=== PATIENT | female | born 1990 | race Caucasian/White ===

== ENCOUNTER 2019-08-25 17:13 | Emergency (ER) | payer BC, SELFPAY ==
[2019-08-25 17:15] VITALS: BP 119/74; PULSE 118; RESP 15; TEMP 37.2; O2SAT 98
--- NOTE | 2019-08-25 17:41 | ED.DCSUM_ITS ---
- ER Visit Summary Date of Service: 08/25/19 Chief Complaint: Sore throat and chills History of Present Illness: The patient is a 28 F no substantial past medical history. Patient states that she has had sore throat and chills since last evening. No fever. No nausea, vomiting or diarrhea. Mild nonproductive cough. Generalized weakness. No dysuria. Physical Examination: Young female no acute distress vital signs stable afebrile does not look septic or toxic. Pulse ox 90% on room air no signs hypoxia. HEENT exam TMs normal bilaterally. Posterior pharynx right tonsils mildly red with a pustule. No substantial enlargement. Left normal. No trouble swallowing or breathing. Neck 1 palpable anterior chain on the right side enlarged tender lymph node. Left side and posterior neck nontender. Lungs clear to auscultation bilaterally. Heart regular rhythm no murmur. Abdomen soft nontender. Patient moving all 4 extremities. No edema. Neurologically awake alert no focal motor deficits. Test Results: None Emergency Department Course and Treatment: History and exam are consistent with early strep throat. She has a right tonsil that is red as a pustule as a palpable lymph node. She was started on amoxicillin here and a prescription for 7 days. Treatment Plan: Amoxicillin 3 times daily. Tylenol Motrin for pain. Warm salt water gargling. Follow-up with her doctor to [facility] if not improving. Disposition: dc Impression: Acute strep throat This note was generated with [employer] dictation software. It may contain incorrect words, spelling, and punctuation that were not noted in review of the chart prior to signing ED Disposition - Plan for ED Patient: Referrals: [facility] ,Out of [Primary Care Provider] -
--- NOTE | 2019-08-25 17:43 | ED.DEP ---
ED Disposition - Plan for ED Patient: Disposition: Home or Assisted Living Instructions: Strep Throat Prescriptions: Amoxicillin 500 mg PO TID #30 tab Prescription Printed Referrals: [facility],Out of [Primary Care Provider] - 1 Week if not improving Additional Instructions: Fluids and rest. Alternate Tylenol and Motrin for pain, fever and body aches. Warm salt water gargling. Amoxicillin 3 times a day till gone. Follow-up with your doctor if not improving.
== END 2019-08-25 18:06 | disposition home or self-care (01) ==
LOC: ED 18:03
PROVIDERS: Emergency Provider Emergency Medicine
DX: J02.0 Streptococcal pharyngitis (principal)
CPT/HCPCS: 99282

== ENCOUNTER 2020-01-18 15:41 | Emergency (ER) | payer BC, SELFPAY ==
[2020-01-18 15:42] VITALS: BP 127/73; PULSE 80; RESP 16; TEMP 36.2; O2SAT 97; BMI 20.3
--- NOTE | 2020-01-18 16:20 | EKG12_ITS ---
Test Reason : DYSRHYTHMIA Blood Pressure : / mmHG Vent. Rate : 081 BPM Atrial Rate : 081 BPM P-R Int : 140 ms QRS Dur : 080 ms QT Int : 362 ms P-R-T Axes : 063 062 064 degrees QTc Int : 420 ms Normal sinus rhythm Normal ECG Confirmed by ALEJANDRO HAYNES, JANICE ([id number]), food editor JORDY ESCOBAR ([id number]) on 01/20/2020 9:44:44 AM Referred By: CHAD Confirmed By:JANICE ALLEN MD
[2020-01-18 16:40] LABS: Absolute Lymphocyte Count 1.79 X10^3/uL (0.83-4.51); Absolute Neutrophil Count 4.3 X10^3/uL (2.0-7.7); Basophil# 0.04 X10^3/uL; Basophil% 0.6 % (0-1); Eosinophil# 0.09 X10^3/uL; Eosinophils% 1.3 % (0-5); Hematocrit 42.7 % (37-47); Hemoglobin 13.7 g/dL (12.0-15.0); Lymphocyte # 1.79 X10^3/ul (4.0); Mean Corp Hgb Conc 32.1 g/dL (32-36); Mean Corpuscular Hgb 27.8 pg (27.0-32.0); Mean Corpuscular Volume 86.8 fL (81-99); Mean Platelet Vol. 9.9 fl (6.2-12.0); Monocyte# 0.62 X10^3/uL; NRBC Flagged by Analyzer 0 % (0-5); Neutrophil # 4.32 X10^3/uL (2.7-7.7); Neutrophil % 62.8 % (47-70); Platelet Count 241 K/mm3 (150-450); RBC Distribution Width CV 13.2 % (11.6-14.6); RBC Distribution Width SD 41.2 fl (35.1-43.9); Red Blood Count 4.92 M/mm3 (4.2-5.4); White Blood Count 6.9 K/mm3 (4.4-11.0)
[2020-01-18 16:53] LABS: Anion Gap 3 (5-15); BUN 10 mg/dL (7-18); BUN/Creat Ratio 13.6 RATIO (10-20); Calcium,Total 8.8 mg/dL (8.5-10.1); Chloride 108 mmol/L (98-107); Creatinine, Serum 0.74 mg/dL (0.55-1.02); EST Glomerular Filtration Rate 100 mL/min (>60); Est Glom Filt Rate - Afr Amer 121 mL/min (>60); Estimated Creatinine Clearance 105.36 ml/min; Glucose 66 mg/dL (74-106); Potassium 3.8 mmol/L (3.5-5.1); Prothrombin Time (Protime)PT. 12.8 SECONDS (11.7-14.9); Sodium Level 140 mmol/L (136-145)
[2020-01-18] MEDS: 0.9% Normal Saline 1,000 ML 1000 ML IV (16:53)
[2020-01-18 16:54] LABS: Partial Thromboplast Time 27.2 Seconds (24.1-36.2)
[2020-01-18 17:12] VITALS: BP 112/67; BP 116/72; BP 119/78; PULSE 68; PULSE 76
[2020-01-18] MEDS: Acetaminophen 500 MG Tablet 1000 MG PO (17:14)
[2020-01-18] MEDS: Ondansetron 4 MG/2 ML Vial IV (17:14)
[2020-01-18 17:43] LABS: Internal QC Validated? YES +Cl - CLEAR BKGD; Pregnancy, Serum, hCG Quali. NEGATIVE Negative
--- NOTE | 2020-01-18 17:48 | ED.VISSUMM ---
- ER Visit Summary Date of Service: 01/18/20 Chief Complaint: Lightheaded History of Present Illness: The patient is a 29 F with no primary care physician. She reports that a 31 this morning she been standing at work for approximate 20 minutes when she began to feel lightheaded. States that this was accompanied by nausea. She denies any chest pain, palpitations, vomiting, diaphoresis, or shortness of breath. She did not pass out. Physical Examination: Vitals: Stable. Afebrile. General: Well-nourished and well-developed. Head: Normocephalic atraumatic. Neck: Supple, no lymphadenopathy. No JVD. Nontender. Cardiovascular: Regular rate and rhythm. No murmurs. Respiratory: No respiratory distress. Clear to auscultation bilaterally. Abdominal: Soft, nontender, nondistended, normal bowel sounds. No guarding, rebound, or peritoneal signs. Back: Nontender. Extremities: Nontender, no edema. Skin: Normal color, no rash. Neurologic: Alert and oriented ?3. Cranial nerves II through XII are intact. Normal strength and sensation. Psych: Normal affect. Test Results: EKG is sinus at 81. Normal intervals. No evidence of hypertrophic obstructive cardiomyopathy or Brugada syndrome. CBC is normal. Chem-7 shows chloride 1 week glucose is 66. Coags are normal. test negative. Emergency Department Course and Treatment: Orthostatic vital signs were negative. Patient was able to drink while here. She was treated with Zofran IV and Tylenol p.o. Treatment Plan: Patient be discharged instructions to push fluids. Keep hard candy around in case she starts to feel this way again. Follow-up with the [facility] in 1 to 2 days if not improving. Return to the emergency department for any worsening symptoms. Disposition: To home in improved and stable condition. Impression: 1. Near syncope. 2. Hypoglycemia. This note was generated with [employer] dictation software. It may contain incorrect words, spelling, and punctuation that were not noted in review of the chart prior to signing ED Disposition - Plan for ED Patient: Disposition: Home or Assisted Living Instructions: ED Near-Fainting, Uncertain Cause Referrals: [facility] [NON-STAFF] - 1 Week
[2020-01-18 17:57] VITALS: BP 114/73; PULSE 77; RESP 14; O2SAT 100
== END 2020-01-18 18:01 | disposition home or self-care (01) ==
LOC: ED 17:57
PROVIDERS: Emergency Provider Emergency Medicine
DX: R55 Syncope and collapse (principal); E16.2 Hypoglycemia, unspecified
CPT/HCPCS: 80048; 84703; 85025; 85610; 85730; 93005; 96361; 96374; 99285; J7030; J2405

== ENCOUNTER 2020-05-04 16:09 | Emergency (ER) | payer OTHER, SELFPAY ==
[2020-05-04 16:11] VITALS: BP 121/78; PULSE 79; RESP 16; TEMP 36.2; O2SAT 99; BMI 21.2
--- NOTE | 2020-05-04 16:32 | ED.VISSUMM ---
- ER Visit Summary Date of Service: 05/04/20 Chief Complaint: [Headache, chest pain, nausea] History of Present Illness: The patient is a 29 F [presents to the emergency department with multiple complaints. Patient states that she woke up this morning and had a headache and some chest discomfort. Patient went back to bed and woke up and she still has a headache and had a stomachache and so she try to eat some pork chops with that and really seem to resolve things. She had a mild cough this morning but seems to be resolved now. She complains of body aches. She complains of feeling shaky. She denies any fever. She denies any Covid exposures. She states she is not really having pain so much in her abdomen is more nausea. She rates her headache as a 7 out of 10. She complains of some mild photophobia. She normally does not get headaches or migraines. Patient has no medical history. Patient's last menstrual period was less than a month ago and she has not missed a period. She denies any urinary symptoms.] Physical Examination: [HEENT-PERRLA, EOMI. Cranial nerves II through XII grossly intact. TMs clear. Mucous membranes moist. No adenopathy. Cardiovascular-regular rate and rhythm without murmur or ectopy Lungs-clear to auscultation, chest wall stable without crepitus or subcu emphysema Abdomen-normoactive bowel sounds, soft, nontender, no rebound or rigidity, no peritoneal signs. Neuro [id number] and heel lock testing within normal limits, negative Romberg, negative pronator drift, fundi benign Extremities-intact ?4, normal range of motion, normal pulses, atraumatic] Test Results: [CMP was unremarkable. hCG was negative. Urinalysis was negative. COVID-19 test was negative.] Emergency Department Course and Treatment: [IV line established. Patient was given a liter normal saline fluid bolus. Patient given Reglan, Benadryl, and Toradol and her headache resolved. She does not have abdominal pain. She is hungry and wants to eat.] Treatment Plan: [Patient advised to push fluids. Patient to follow-up with her primary care physician or physician regional sales executive for no doc within the next 3 to 5 days. Patient advised to return if condition should worsen anyway.] Disposition: [Discharged home in stable condition] Impression: [Migrainous cephalgia-resolved Viral syndrome] This note was generated with [employer] dictation software. It may contain incorrect words, spelling, and punctuation that were not noted in review of the chart prior to signing ED Disposition - Plan for ED Patient: Referrals: Care Physician,No Primary [Primary Care Provider] -
[2020-05-04 16:35] LABS: Bedside Glucose 89 mg/dL (70-110)
[2020-05-04] MEDS: 0.9% Normal Saline 1,000 ML 1000 ML IV (16:52)
[2020-05-04] MEDS: Metoclopramide 10 MG/2 ML Vial IV (16:53)
[2020-05-04] MEDS: Ketorolac 30 MG/ML Syringe IV (16:54)
[2020-05-04] MEDS: DiphenhydrAMINE 50 MG/ML Syringe 25 MG IV (16:55)
[2020-05-04 17:03] LABS: Bacteria 0 SEEN /hpf (None Seen)
[2020-05-04 17:04] LABS: Color, Urine Yellow (Yellow); Glucose, Dipstick Normal (Normal); Ketone-Dipstick 5 mg/dl (Negative); Leukocyte Esterase-Dipstick 25 /ul (Negative); Nitrite-Dipstick Negative (Negative); Occult Blood-Urine 25 /ul (Negative); Protein-Dipstick Negative (Negative); Urine Bilirubin Dipstick Negative (Negative); Urine Clarity Clear (Clear); Urine Urobilinogen Normal (Normal)
[2020-05-04 17:14] LABS: ALB/GLOB Ratio 0.9 RATIO (0.9-2.4); AST(SGOT) 10 U/L (15-37); Alanine Aminotransfer ALT/SGPT 18 U/L (13-56); Albumin, Serum 3.7 g/dL (3.2-5.0); Alkaline Phosphatase 68 U/L (45-117); Anion Gap 6 (5-15); BUN 9 mg/dL (7-18); BUN/Creat Ratio 12.4 RATIO (10-20); Calcium,Total 8.6 mg/dL (8.5-10.1); Chloride 108 mmol/L (98-107); Creatinine, Serum 0.72 mg/dL (0.55-1.02); EST Glomerular Filtration Rate 102 mL/min (>60); Est Glom Filt Rate - Afr Amer 123 mL/min (>60); Estimated Creatinine Clearance 112.94 ml/min; Globulin 4.1 g/dL (2.2-4.2); Glucose 85 mg/dL (74-106); Potassium 3.7 mmol/L (3.5-5.1); Protein, Total 7.8 g/dL (6.4-8.2); Sodium Level 139 mmol/L (136-145)
[2020-05-04 17:17] LABS: Internal QC Validated? YES +Cl - CLEAR BKGD; Pregnancy, Serum, hCG Quali. NEGATIVE Negative
[2020-05-04 17:30] LABS: Mucous, Urine 1+ /hpf (<or=2+); Red Blood Cells-Urine 0-5 SEEN /hpf (0-5); Squamous Epithelial Cells - UA 0-5 SEEN /hpf (5-10); White Blood Cells 0-5 SEEN /hpf (0-5)
--- NOTE | 2020-05-04 17:45 | ED.DEP ---
ED Disposition - Plan for ED Patient: Instructions: ED, Migraine (Classical), ED Viral Syndrome (Adult) Referrals: Care Physician,No Primary [Primary Care Provider] - Dania Hernandez MD [STAFF PHYSICIAN] - 3-5 Days
== END 2020-05-04 18:01 | disposition home or self-care (01) ==
PROVIDERS: Emergency Provider Emergency Medicine
DX: G43.909 Migraine, unspecified, not intractable, without status migrainosus (principal); B34.9 Viral infection, unspecified
CPT/HCPCS: 80048; 80053; 81001; 82962; 84703; 87426; 96361; 96374; 96375; 99283; J7030

== ENCOUNTER 2020-10-10 08:23 | Emergency (ER) | payer OTHER, SELFPAY ==
[2020-10-10 08:23] VITALS: BP 126/80; PULSE 73; RESP 16; TEMP 36.6; O2SAT 98; BMI 21.9
--- NOTE | 2020-10-10 09:00 | EX.ED.DYSGE1 ---
HPI History of Present Illness Chief Complaint: General Illness Informant: patient Onset/Context/Timing Onset: Yesterday Context: Gradual Onset Timing: Intermittent and Lasts (5 minutes) Quality: Lightheadedness Location: Generalized Worsened by: Nothing Relieved by: Nothing Narrative Narrative: Patient presents with dizziness that has been intermittent since yesterday. Patient states it comes on and lasts approximately 5 minutes. Patient states she feels lightheaded. Patient states she feels like she needs to sit down before she passes out. Patient denies any loss of consciousness. Patient states nothing makes it better and nothing makes it worse. Patient states it feels like a hangover but she has not had any alcohol to drink in the past couple days. PFSH PFS Home Medications levonorgestrel-ethinyl estrad 1 ea PO DAILY 08/25/19 [History Last Taken Unknown] acyclovir 400 mg PO BID 01/18/20 [History Last Taken Unknown] Allergy/AdvReac Type Severity Reaction Status Date / Time cat dander Allergy difficulty Verified 10/10/20 08:25 breathing, eyes swell hydromorphone [From Dilaudid] AdvReac Rash Verified 10/10/20 08:25 morphine AdvReac Rash Verified 10/10/20 08:25 Surgical History H/O LEEP left wrist Social History Smoking Status: Never smoker ROS ROS ED Constitutional Constitutional ED: Denies chills or fever(s) Eyes Eyes: Denies blurry vision or change in vision ENT ENT ED: Reports rhinorrhea; Denies sore throat Cardiovascular Cardiovascular: Denies chest pain or palpitations Respiratory/Chest Respiratory/Chest: Denies cough or dyspnea Gastrointestinal Gastrointestinal: Reports nausea; Denies vomiting Genitourinary Genitourinary ED: Denies dysuria or hematuria Musculoskeletal Musculoskeletal: Denies back pain or neck pain Integumentary Denies abscess or rash Neurologic Neurologic: Reports headache(s); Denies weakness Allergic/Immunologic Allergic/Immunologic ED: Denies mouth swelling or urticaria EXAM Physical Exam Const Vital Signs: 10/10/20 08:23 10/10/20 08:32 10/10/20 10:24 Temperature 97.9 F Temperature Source Temporal Pulse Rate 73 Pulse Rate [Lying] 79 Pulse Rate [Sitting] 71 Pulse Rate [Standing] 76 Respiratory Rate 16 Respiratory Effort Normal Non-Labored Respiratory Pattern Normal Blood Pressure 126/80 H Blood Pressure [Lying] 124/77 H Blood Pressure [Sitting] 120/83 H Blood Pressure [Standing] 136/85 H Blood Pressure Mean 95 Blood Pressure Mean [Lying] 92 Blood Pressure Mean [Sitting] 95 Blood Pressure Mean [Standing] 102 Pulse Ox 98 Oxygen Delivery Method Room Air 10/10/20 11:51 Temperature Temperature Source Pulse Rate 62 Pulse Rate [Lying] Pulse Rate [Sitting] Pulse Rate [Standing] Respiratory Rate 15 Respiratory Effort Respiratory Pattern Blood Pressure 113/74 Blood Pressure [Lying] Blood Pressure [Sitting] Blood Pressure [Standing] Blood Pressure Mean Blood Pressure Mean [Lying] Blood Pressure Mean [Sitting] Blood Pressure Mean [Standing] Pulse Ox 98 Oxygen Delivery Method Positive well nourished and well developed General Appearance ED: well developed HEENT Reports moist mucous membranes Eyes PERRL and EOMs intact bilaterally Eyes Narrative: There is no nystagmus noted Neck supple and no JVD Resp normal respiratory effort and clear to auscultation bilaterally Cardio regular rate and regular rhythm GI normal to inspection, nondistended, normoactive bowel sounds and non-tender Palpation: soft Extremity normal to inspection General Extremety ED: Negative for edema or tenderness General Extremity: Negative for edema Neuro oriented x3, CN's II-XII intact bilaterally and no sensory deficits noted Sensorium / Orientation: alert Motor Exam: strength 5/5 throughout Psych mental status grossly normal MDM MDM MDM Narrative Medical decision making narrative: Patient was given IV fluids and Zofran here. CBC and comprehensive metabolic profile were within normal limits. Urinalysis does not show any evidence of urinary tract infection. Serum hCG was negative. Patient was advised of her findings. Patient was instructed to drink plenty of fluids. Patient was instructed to follow-up with her primary care physician in 5 to 7 days. Patient understood and was agreeable with the plan. All questions were answered. Lab Data Attestation: I reviewed the patient's lab results. Labs: Laboratory Results - last 24 hr 10/10/20 10/10/20 10/10/20 09:29 09:35 09:35 WBC 8.6 RBC 5.06 Hgb 13.5 Hct 42.7 MCV 84.4 MCH 26.7 L MCHC 31.6 L RDW Std Deviation 41.1 RDW Coeff of Tamia 13.4 Plt Count 292 MPV 10.1 Immature Gran % (Auto) 0.200 Neut % (Auto) 73.6 H Lymph % (Auto) 19.3 [place] % (Auto) 5.8 Eos % (Auto) 0.8 Baso % (Auto) 0.3 Absolute Neuts (auto) 6.3 Absolute Lymphs (auto) 1.66 Nucleated RBC % 0 Sodium 137 Potassium 4.2 Chloride 107 Carbon Dioxide 27.0 Anion Gap 3 L BUN 12 Creatinine 0.63 Estim Creat Clear Calc 129.28 Est GFR (MDRD) Af Amer 143 Est GFR (MDRD) Non-Af 118 BUN/Creatinine Ratio 19.0 Glucose 86 Calcium 8.6 Total Bilirubin 0.30 AST 20 ALT 19 Alkaline Phosphatase 71 Total Protein 8.1 Albumin 3.8 Globulin 4.3 H Albumin/Globulin Ratio 0.9 Serum , Qual Urine Color Yellow Urine Clarity Sl. Cloudy Urine pH 6.0 Ur Specific [place] 1.025 Urine Protein 30 H Urine Glucose (UA) Normal Urine Ketones 5 H Urine Occult Blood 25 H Urine Nitrite Negative Urine Bilirubin Negative Urine Urobilinogen Normal Ur Leukocyte Esterase 25 H Urine RBC 0-5 SEEN Urine WBC 0-5 SEEN Ur Squamous Epith Cells 0-5 SEEN Urine Bacteria 1+ Urine Mucus 1+ 10/10/20 09:35 WBC RBC Hgb Hct MCV MCH MCHC RDW Std Deviation RDW Coeff of Tamia Plt Count MPV Immature Gran % (Auto) Neut % (Auto) Lymph % (Auto) [place] % (Auto) Eos % (Auto) Baso % (Auto) Absolute Neuts (auto) Absolute Lymphs (auto) Nucleated RBC % Sodium Potassium Chloride Carbon Dioxide Anion Gap BUN Creatinine Estim Creat Clear Calc Est GFR (MDRD) Af Amer Est GFR (MDRD) Non-Af BUN/Creatinine Ratio Glucose Calcium Total Bilirubin AST ALT Alkaline Phosphatase Total Protein Albumin Globulin Albumin/Globulin Ratio Serum , Qual NEGATIVE Urine Color Urine Clarity Urine pH Ur Specific [place] Urine Protein Urine Glucose (UA) Urine Ketones Urine Occult Blood Urine Nitrite Urine Bilirubin Urine Urobilinogen Ur Leukocyte Esterase Urine RBC Urine WBC Ur Squamous Epith Cells Urine Bacteria Urine Mucus Discharge Plan Triage Chief Complaint: General Illness ED Provider: Sathya Hendricks Dx/Rx/DC Orders Clinical Impression: Episodic lightheadedness Instructions: ED Dizziness, Uncertain Cause Prescriptions: No Action levonorgestrel-ethinyl estrad 1 EACH tablet 1 ea PO DAILY RF: 0 acyclovir 400 MG tablet 400 mg PO BID RF: 0 Primary Care Provider: Care Physician,No Primary Referrals: Jamil Ragsdale MD [STAFF PHYSICIAN] - 3-5 Days Care Physician,No Primary [Primary Care Provider] - Disposition Disposition: Home, Self Care Discharge Date/Time: 10/10/20 11:51
[2020-10-10 09:36] LABS: Color, Urine Yellow (Yellow); Glucose, Dipstick Normal (Normal); Ketone-Dipstick 5 mg/dl (Negative); Leukocyte Esterase-Dipstick 25 /ul (Negative); Nitrite-Dipstick Negative (Negative); Occult Blood-Urine 25 /ul (Negative); Protein-Dipstick 30 mg/dl (Negative); Specific Gravity, Urine 1.025 (1.002-1.030); Urine Bilirubin Dipstick Negative (Negative); Urine Clarity Sl. Cloudy (Clear); Urine Urobilinogen Normal (Normal)
[2020-10-10 09:42] LABS: Red Blood Cells-Urine 0-5 SEEN /hpf (0-5); Squamous Epithelial Cells - UA 0-5 SEEN /hpf (5-10); White Blood Cells 0-5 SEEN /hpf (0-5)
[2020-10-10 09:43] LABS: Bacteria 1+ /hpf (None Seen); Mucous, Urine 1+ /hpf (<or=2+)
[2020-10-10] MEDS: Ondansetron 8 MG Tablet 4 MG PO (09:51)
[2020-10-10 09:52] LABS: Absolute Lymphocyte Count 1.66 X10^3/uL (0.83-4.51); Absolute Neutrophil Count 6.3 X10^3/uL (2.0-7.7); Basophil# 0.03 X10^3/uL; Basophil% 0.3 % (0-1); Eosinophil# 0.07 X10^3/uL; Eosinophils% 0.8 % (0-5); Hematocrit 42.7 % (37-47); Hemoglobin 13.5 g/dL (12.0-15.0); Lymphocyte # 1.66 X10^3/ul (0.83-4.51); Lymphocyte % 19.3 % (19-41); Mean Corp Hgb Conc 31.6 g/dL (32-36); Mean Corpuscular Hgb 26.7 pg (27.0-32.0); Mean Corpuscular Volume 84.4 fL (81-99); Mean Platelet Vol. 10.1 fl (6.2-12.0); Monocyte% 5.8 % (0-10); NRBC Flagged by Analyzer 0 % (0-5); Neutrophil # 6.32 X10^3/uL (2.7-7.7); Neutrophil % 73.6 % (47-70); Platelet Count 292 K/mm3 (150-450); RBC Distribution Width CV 13.4 % (11.6-14.6); RBC Distribution Width SD 41.1 fl (35.1-43.9); Red Blood Count 5.06 M/mm3 (4.2-5.4); White Blood Count 8.6 K/mm3 (4.4-11.0)
[2020-10-10 10:03] LABS: ALB/GLOB Ratio 0.9 RATIO (0.9-2.4); AST(SGOT) 20 U/L (15-37); Alanine Aminotransfer ALT/SGPT 19 U/L (13-56); Albumin, Serum 3.8 g/dL (3.2-5.0); Alkaline Phosphatase 71 U/L (45-117); Anion Gap 3 (5-15); BUN 12 mg/dL (7-18); Calcium,Total 8.6 mg/dL (8.5-10.1); Chloride 107 mmol/L (98-107); Creatinine, Serum 0.63 mg/dL (0.55-1.02); EST Glomerular Filtration Rate 118 mL/min (>60); Est Glom Filt Rate - Afr Amer 143 mL/min (>60); Estimated Creatinine Clearance 129.28 ml/min; Globulin 4.3 g/dL (2.2-4.2); Glucose 86 mg/dL (74-106); Potassium 4.2 mmol/L (3.5-5.1); Protein, Total 8.1 g/dL (6.4-8.2); Sodium Level 137 mmol/L (136-145)
[2020-10-10 10:21] LABS: Internal QC Validated? YES +Cl - CLEAR BKGD; Pregnancy, Serum, hCG Quali. NEGATIVE Negative
[2020-10-10 10:24] VITALS: BP 120/83; BP 124/77; BP 136/85; PULSE 71; PULSE 76; PULSE 79
[2020-10-10 11:51] VITALS: BP 113/74; PULSE 62; RESP 15; O2SAT 98
== END 2020-10-10 11:51 | disposition home or self-care (01) ==
PROVIDERS: Emergency Provider Emergency Medicine
DX: R42 Dizziness and giddiness (principal); Z79.3 Long term (current) use of hormonal contraceptives
CPT/HCPCS: 80053; 81001; 84703; 85025; 99284; J7030; A4216; J2405

== ENCOUNTER 2021-03-01 16:00 | Outpatient (RCR) | payer OTHER, SELFPAY ==
--- NOTE | 2021-02-08 11:50 | HP.PTEVAL_ITS ---
Patient's Visit Information FRANCOISE RIVERS is a 30 year old F referred to Physical Therapy by AAMIR Bustamante with a diagnosis of low back muscle strain.. Date of Evaluation: 02/08/21 Physical Therapist: CLAIRE TomasT, OCS, CSCS - Visit Plan Frequency: 2x /Week Duration: 4-6 Weeks Plan: 2x/week for 4-6 weeks. 1. LB AROM and PROM, stretch of quads and HS with rollout. 2. core strength to HEP and functional progression with body mechanics instruct. 3. TENS and MH if needed for pain. 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 A couple hours later it started hurting, not right away. Canvas bad the next day and went to doctor. Diagnose with strain and given meds ibuprofen which helped a little bit. Also cyclobenzaprine which she stillt akes at night. Slightly improving over time but not great. Could not give dogs bath yesterday. pain is in the middle. never had this before. Pain has been to 7/10 moving and bending. Comfortable sitting less than an hour. Sleep is Ok with meds. 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 Basic ADLs are getting done but slow and painful with bending. Hobbies when healthy include shopping, crafting. Hang out with firends. has avoided these. No regular exercises. - Pain LBP Pain Intensity (Out of 10): 0 Pain Intensity Range: 0, 7 - Objective Walks normal adn I, trasnfers bed adn chair easily. reflexes 2/3 patella and achilles. strength LE 4 without myotomal problems. Sensation LE WNL LE. Tender to PA pressure lower lumbar spine. No soft tissue tenderness. supermans 3+ adn painful. hip ext painful in LB in prone. repeated ext adn flexion improved motion and pain as she did more of them. LB AROM ext painful and min limited. flexion painful and max limited at first. SB L>R pain. - Balance/Special Test Scores Oswestry Low Back Score: 20 - Goals Goal 1:: Full lumbar AROM without pain Goal Time Frame: 4-6 Weeks Goal 2:: pain 99% better adn 1/10 at worst Goal Time Frame: 4-6 Weeks Goal 3:: Return to work full duty and time Goal Time Frame: 4-6 Weeks Goal 4:: I approp body mechanics and HEP to minimze future problems. Goal Time Frame: 4-6 Weeks - Rehabilitation Potential Physical Therapy Diagnosis: low back muscle strain. Rehabilitation Potential: Good - Anticipated Interventions Patient/Client Instruction: Educate patient on: Condition, Plan of Care For the Purpose of:: To decrease pain, To increase ROM, To improve muscle performance and motor function, To improve ability of physical actions for home/community/work/leisure Therapeutic Exercise to Include: Strength training, Postural training, Flexibilty training, Gait and locomotor training, Passive ROM, Active ROM, Dynamic Lumbar Stabilization For the Purpose of:: To decrease pain, To improve muscle performance and motor function, To increase tolerance to activity/condition/position, To improve ability of physical actions for home/community/work/leisure Manual Therapy Techniques to Include: Passive ROM, Soft tissue mobilization For the Purpose of:: To decrease pain, To increase ROM, To increase tolerance to activity/condition/position TENS: Yes Thermo therapy (hot pack): Yes For the Purpose of:: To decrease pain, To increase ROM, To improve muscle performance and motor function Thank you for the opportunity to evaluate your patient. For Medicare and Medicare HMO plans, please review the plan of care and approve it. It will need to be FAXED BACK to us at [phone] for Medicare purposes. For Medicare only, by signing this I certify the plan of care. Please let me know if there are questions or concerns regarding this plan of care. Physician Signature:__ Date:
--- NOTE | 2021-03-07 09:24 | HP.PT.NRP ---
FRANCOISE RIVERS was seen in my office for initial evaluation on 02/08/21. The following Plan of Care was established for this patient: Initial Frequency: 2x /Week Initial Duration: 4-6 Weeks Patient/Client Instruction: Educate patient on: Condition, Plan of Care For the Purpose of:: To decrease pain, To increase ROM, To improve muscle performance and motor function, To improve ability of physical actions for home/community/work/leisure Therapeutic Exercise to Include: Strength training, Postural training, Flexibilty training, Gait and locomotor training, Passive ROM, Active ROM, Dynamic Lumbar Stabilization For the Purpose of:: To decrease pain, To improve muscle performance and motor function, To increase tolerance to activity/condition/position, To improve ability of physical actions for home/community/work/leisure Manual Therapy Techniques to Include: Passive ROM, Soft tissue mobilization For the Purpose of:: To decrease pain, To increase ROM, To increase tolerance to activity/condition/position TENS: Yes Thermo therapy (hot pack): Yes For the Purpose of:: To decrease pain, To increase ROM, To improve muscle performance and motor function This patient was last seen in our office 03/01/21. Pertinent comments regarding their Physical therapy will appear below: Pt seen 5 visits and reported to BRADLEY LINEBACKER CREWMEMBER at last session that she was 100% better and wished to be discharged. At this point I will be discontinuing this patient from physical therapy. I would be happy to see this patient again in the future if found appropriate by the physician. Thank you! Sathay Brito, DPT, OCS, CSCS Balance/Gait/Functional tests - Balance/Special Test Scores Oswestry Low Back Score: 0
== END 2021-03-01 19:00 | disposition home or self-care (01) ==
LOC: PT 16:00
PROVIDERS: Referring Provider Physician Assistant; Visit Provider Physician Assistant
DX: S39.012D Strain of muscle, fascia and tendon of lower back, subsequent encounter (principal); X58.XXXD Exposure to other specified factors, subsequent encounter
CPT/HCPCS: 97110; 97161

== ENCOUNTER 2021-04-24 07:51 | Emergency (ER) | payer OTHER, SELFPAY ==
[2021-04-24 07:52] VITALS: BP 128/79; PULSE 72; RESP 14; TEMP 35.7; O2SAT 98; BMI 22.9
--- NOTE | 2021-04-24 08:39 | EDS_ITS ---
HPI History of Present Illness Chief Complaint: General Illness Narrative Narrative: Patient had a Covid booster about 6 days ago, since then she has felt flushed and sometimes lightheaded. She was at work today and felt lightheaded again. No chest pain or shortness of breath no lower extremity edema or calf pain. No fevers or chills. No cough or congestion. She tells me she is eating and drinking well. [facility] Medical History Acute lumbar myofascial strain Home Medications levonorgestrel-ethinyl estrad 1 ea PO DAILY 08/25/19 [History Last Taken Unknown] ibuprofen 600 mg tablet 600 mg PO .QID #60 tab 02/01/21 [Rx Last Taken Unknown] Allergy/AdvReac Type Severity Reaction Status Date / Time cat dander Allergy difficulty Verified 04/24/21 07:55 breathing, eyes swell hydromorphone [From Dilaudid] AdvReac Rash Verified 04/24/21 07:55 morphine AdvReac Rash Verified 04/24/21 07:55 Surgical History H/O LEEP left wrist Social History Smoking Status: Never smoker ROS ROS ED ROS Narrative Past medical history: Reviewed Medications: Reviewed Social history: Noncontributory Review of systems: All systems negative except as indicated General: No fever. Lightheaded as in HPI Eyes: No visual changes ENT: No upper airway congestion, normal voice Neck: No neck pain Cardiovascular: No chest pain Respiratory: No shortness of breath or cough Gastrointestinal: No abdominal pain, nausea vomiting or diarrhea Genitourinary: No dysuria Musculoskeletal: Denies myalgias no difficulty with ambulation Skin: No rash Neurological: No memory loss, confusion or any focal weakness Psych: No recent behavioral changes Hematologic: No easy bleeding or easy bruising EXAM Physical Exam Narrative Exam Narrative: Physical exam General: Well nourished, Well developed, No Acute Distress Head: Normocephalic, Atraumatic Eyes: Conjunctiva not pale ENT: Moist mucous membranes Neck: Supple, Nontender, No lymphadenopathy Cardiovascular: Regular rate, Regular rhythm Respiratory: No distress, CTA bilaterally Abdomen: Soft, Nontender, Nondistended Back: Nontender, Normal Inspection. Negative for: CVA tenderness Extremities: Nontender, No edema Skin: Normal color, No rash Neurological: Alert, Normal Strength, Normal Sensation Psychological: Normal affect Const Vital Signs: 04/24/21 07:52 04/24/21 08:10 Temperature 96.3 F L Temperature Source Temporal Pulse Rate 72 Respiratory Rate 14 Respiratory Effort Normal Non-Labored Respiratory Pattern Normal Blood Pressure 128/79 H Blood Pressure Mean 95 Pulse Ox 98 Oxygen Delivery Method Room Air MDM MDM MDM Narrative Medical decision making narrative: Patient has a normal work-up. She appears well. She has normal vitals, this may be a side effect of the Covid vaccine or may be idiopathic. I do not believe I need to run any tests especially with normal vitals. EKG was unremarkable. I will discharge her with reassurance and she can follow-up with her PCP. EKG Initial EKG: Comments: Sinus rhythm with a rate of 75. Normal [place] and QTc intervals. No ischemic changes. Interpreted by emergency doctor. Discharge Plan Triage Chief Complaint: General Illness ED Provider: Israel Dos Santos Dx/Rx/DC Orders Clinical Impression: Light-headed Instructions: Dizziness Fainting Poss Causes Prescriptions: No Action ibuprofen 600 mg tablet 600 mg PO .QID Qty: 60 RF: 0 levonorgestrel-ethinyl estrad 1 EACH tablet 1 ea PO DAILY RF: 0 Primary Care Provider: Care Physician,No Primary Referrals: Care Physician,No Primary [Primary Care Provider] - Disposition Disposition: Home, Self Care
[2021-04-24 08:48] VITALS: BP 109/72; PULSE 71; RESP 16; O2SAT 98
== END 2021-04-24 08:48 | disposition home or self-care (01) ==
LOC: ED 08:43
PROVIDERS: Emergency Provider Emergency Medicine; Visit Provider Emergency Medicine
DX: R42 Dizziness and giddiness (principal)
CPT/HCPCS: 93005; 99282

== ENCOUNTER 2021-06-11 13:49 | Emergency (ER) | payer OTHER, SELFPAY ==
[2021-06-11 13:50] VITALS: BP 135/86; PULSE 80; RESP 18; TEMP 36.8; O2SAT 99; BMI 22.7
--- NOTE | 2021-06-11 14:14 | ED.VIS.FEGU ---
HPI HPI - Female History of Present Illness Chief Complaint: Complaint Informant: patient Pain Pain: Positive for - (Right side/flank) Onset: Yesterday Context: Gradual Onset Timing: Continuous Quality: Positive for Aching Location: - (Right flank) Current Severity: Moderate Maximum Severity: Moderate Worsened by: Movement Relieved by: Remaining Still Bleeding Issue: Negative for Vaginal bleeding Associated Symptoms Associated Symptoms: Positive for Dysuria, Frequency and Urgency; Negative for Hematuria Last known menstrual period: 05/18/21 Narrative Narrative: Patient with burning and urinary frequency over the last 2 or 3 days, then started developing pain in her right flank. Subjective fever once, some chills off and on. No nausea or vomiting. Not that she knows of. States she has had a UTI once that was diagnosed as pyelonephritis and bad enough that she needed to be admitted to the hospital but that was remotely. [facility] Medical History Acute lumbar myofascial strain Home Medications sulfamethoxazole-trimethoprim 1 tab PO BID #14 tablet 06/11/21 [Rx Last Taken Unknown] Allergy/AdvReac Type Severity Reaction Status Date / Time cat dander Allergy difficulty Verified 06/11/21 13:52 breathing, eyes swell hydromorphone [From Dilaudid] AdvReac Rash Verified 06/11/21 13:52 morphine AdvReac Rash Verified 06/11/21 13:52 Surgical History H/O LEEP left wrist Social History Smoking Status: Never smoker ROS ROS ED Constitutional Constitutional ED: Reports chills; Denies fever(s) Eyes Eyes: Denies change in vision or diplopia ENT ENT ED: Denies rhinorrhea or sore throat Cardiovascular Cardiovascular: Denies chest pain or palpitations Respiratory/Chest Respiratory/Chest: Denies cough or dyspnea Gastrointestinal Gastrointestinal: Denies diarrhea, nausea or vomiting Genitourinary Genitourinary ED: Reports dysuria, flank pain, urinary frequency and urinary urgency; Denies hematuria Musculoskeletal Musculoskeletal: Denies back pain or neck pain Integumentary Denies abscess or rash Neurologic Neurologic: Reports headache(s); Denies paresthesias or weakness Psychiatric Psychiatric: Denies anxiety or suicidal thoughts EXAM Physical Exam Const Vital Signs: 06/11/21 13:50 Temperature 98.3 F Temperature Source Temporal Pulse Rate 80 Respiratory Rate 18 Blood Pressure 135/86 H Blood Pressure Mean 102 Pulse Ox 99 Oxygen Delivery Method Room Air Positive well nourished and well developed Constitutional Narrative: Well-appearing in no distress General Appearance ED: well developed and NAD HEENT Reports moist mucous membranes normocephalic and atraumatic Eyes PERRL and EOMs intact bilaterally Neck full ROM and supple Resp normal respiratory effort and clear to auscultation bilaterally Cardio regular rate, regular rhythm and no murmurs Rate: Negative for tachycardic GI non-distended GI Narrative: Tender laterally in the right side without CVA tenderness. No guarding or rebound tenderness. No right upper quadrant tenderness subcostal. Auscultation: normoactive bowel sounds Palpation: soft Back/Spine no CVA tenderness General Back: other FROM Extremity normal to inspection General Extremety ED: Negative for edema, pulses abnormal or tenderness General Extremity: Negative for edema or pulses abnormal Neuro oriented x3, CN's II-XII intact bilaterally and no sensory deficits noted Sensorium / Orientation: awake and alert Motor Exam: strength 5/5 throughout Skin no rashes or lesions noted and no wounds MDM MDM MDM Narrative Medical decision making narrative: is negative, urinalysis consistent with infection this was sent for a culture, will start her on Bactrim. Instead of just 3 days, I will extend her out to 1 week given that she is having some symptoms of upper tract involvement but does not have the clinical appearance or exam of pablo pyelonephritis. Lab Data Attestation: I reviewed the patient's lab results. Labs: Laboratory Results - last 24 hr 06/11/21 14:15 Urine Color Yellow Urine Clarity Clear Urine pH 6.0 Ur Specific [place] 1.020 Urine Protein 30 H Urine Glucose (UA) Normal Urine Ketones 5 H Urine Occult Blood 150 H Urine Nitrite Negative Urine Bilirubin Negative Urine Urobilinogen Normal Ur Leukocyte Esterase 500 H Urine RBC 0-5 SEEN Urine WBC 50-100 SEEN Ur Squamous Epith Cells 0-5 SEEN Urine Bacteria 1+ Urine Mucus 1+ Urine Test Negative Discharge Plan Triage Chief Complaint: Complaint Other Complaint: Abd Pain ED Provider: Kevan Omer Dx/Rx/DC Orders Clinical Impression: Urinary tract infection Instructions: ED CYSTITIS Female Adult Prescriptions: New sulfamethoxazole-trimethoprim [sulfamethoxazole-trimethoprim] 1 TABLET tablet 1 tab PO BID Qty: 14 RF: 0 Primary Care Provider: Care Physician,No Primary Referrals: Doctor,Your [STAFF PHYSICIAN] - 3-5 Days if not improving (To review culture results; if worsening, return to ER) Disposition Disposition: Home, Self Care
[2021-06-11 14:29] LABS: Color, Urine Yellow (Yellow); Glucose, Dipstick Normal (Normal); Ketone-Dipstick 5 mg/dl (Negative); Leukocyte Esterase-Dipstick 500 /ul (Negative); Nitrite-Dipstick Negative (Negative); Occult Blood-Urine 150 /ul (Negative); Protein-Dipstick 30 mg/dl (Negative); Urine Bilirubin Dipstick Negative (Negative); Urine Clarity Clear (Clear); Urine Urobilinogen Normal (Normal)
[2021-06-11 14:39] LABS: White Blood Cells 50-100 SEEN /hpf (0-5)
[2021-06-11 14:40] LABS: Bacteria 1+ /hpf (None Seen); Red Blood Cells-Urine 0-5 SEEN /hpf (0-5); Squamous Epithelial Cells - UA 0-5 SEEN /hpf (5-10)
[2021-06-11 14:41] LABS: Mucous, Urine 1+ /hpf (<or=2+)
[2021-06-11 14:43] LABS: Internal QC Validated? YES +Cl - CLEAR BKGD; Pregnancy, Urine Negative Negative
[2021-06-11] MEDS: Smz/Tmp Ds Tablet 1 TABLET PO (15:14)
[2021-06-11] MEDS: Naproxen 250 MG Tablet 500 MG PO (15:14)
== END 2021-06-11 15:15 | disposition home or self-care (01) ==
PROVIDERS: Emergency Provider Emergency Medicine; Visit Provider Emergency Medicine
DX: N39.0 Urinary tract infection, site not specified (principal)
CPT/HCPCS: 81001; 81025; 87077; 87086; 87088; 87186; 99283; A4216

== ENCOUNTER 2021-09-07 06:22 | Emergency (ER) | payer OTHER, SELFPAY ==
[2021-09-07 06:25] VITALS: BP 125/76; PULSE 75; RESP 18; TEMP 36.1; O2SAT 99; BMI 21.8
--- NOTE | 2021-09-07 06:43 | EX.ED.DYSGE1 ---
HPI History of Present Illness Chief Complaint: Nausea/Vomiting/Diarrhea Informant: patient Narrative Narrative: Patient started with nausea vomiting and diarrhea on Saturday. She was seen in urgent care because her work wanted her to get checked for COVID. She was checked for COVID influenza a and B which were negative. She was told just drink liquids. No meds for nausea were given. She states the diarrhea has gotten a little bit more solid. She now has just loose stools. No blood. She was able to eat yesterday evening and thought she was better but then she vomited again this morning. She gets intermittent cramping in her abdomen but is not having pain. She has had no surgery in her abdomen other than a LEEP procedure years ago. She has no vaginal discharge or bleeding. She has no urinary symptoms at all. No fevers or chills. She does work at [employer] and is around a lot of other people but does not know of any specific illnesses that people have had. [facility] Medical History Acute lumbar myofascial strain Home Medications levonorgestrel 0.15 mg-ethinyl estradiol 0.03 mg tablet (Altavera (28)) 1 tab PO DAILY 09/07/21 [History Last Taken Unknown] ondansetron 4 mg disintegrating tablet 4 mg PO Q8H PRN nausea and vomiting #10 tabs 09/07/21 [Rx Last Taken Unknown] Allergy/AdvReac Type Severity Reaction Status Date / Time cat dander Allergy difficulty Verified 09/07/21 06:23 breathing, eyes swell hydromorphone [From Dilaudid] AdvReac Rash Verified 09/07/21 06:23 morphine AdvReac Rash Verified 09/07/21 06:23 Surgical History H/O LEEP left wrist Social History Smoking Status: Never smoker ROS ROS ED Constitutional Constitutional ED: Denies fever(s), subjective or sweats ENT ENT ED: Denies ear pain, rhinorrhea or sore throat Cardiovascular Cardiovascular: Denies chest pain or palpitations Respiratory/Chest Respiratory/Chest: Denies cough or dyspnea Gastrointestinal Gastrointestinal: Reports diarrhea, nausea, vomiting and other Details: See history of present illness. Genitourinary Genitourinary ED: Denies dysuria, hematuria or urinary frequency Musculoskeletal Musculoskeletal: Denies arthralgias, back pain or myalgias Integumentary Denies rash Neurologic Neurologic: Reports headache(s) and other Details: Patient does have a mild headache. ; Denies paresthesias or weakness Endocrine Endocrinology: Denies polydipsia or polyuria Allergic/Immunologic Allergic/Immunologic ED: Denies urticaria EXAM Physical Exam Const Vital Signs: 09/07/21 06:25 Temperature 97.0 F L Temperature Source Temporal Pulse Rate 75 Respiratory Rate 18 Blood Pressure 125/76 H Blood Pressure Mean 92 Pulse Ox 99 Oxygen Delivery Method Room Air Positive well nourished and well developed Constitutional Narrative: Patient awake alert appropriate. Appropriately dressed and groomed. Nontoxic. General Appearance ED: well developed and NAD; Negative for pallor HEENT Reports dry mucous membranes HEENT Narrative: Mildly dry mucous membranes. Mouth ED: Yes dry mucous membranes Mouth: dry mucous membranes Eyes General Eye ED: Negative for pale conjunctiva or scleral icterus Resp normal respiratory effort and clear to auscultation bilaterally Auscultation: Negative for rales, rhonchi, wheezes or diminished lung sounds Cardio regular rate, regular rhythm and no murmurs Rate: Negative for tachycardic GI normal to inspection, nondistended, normoactive bowel sounds, non-tender and non-distended GI Narrative: Abdomen is thin. Overall nontender. Bowel sounds are normal to slightly increased. No mass. No rebound or guarding. Narrative: No CVA tenderness. Back/Spine no CVA tenderness Neuro Sensorium / Orientation: alert Skin no rashes or lesions noted General Skin Exam: Negative for jaundice or pallor MDM MDM MDM Narrative Medical decision making narrative: Patient CBC is normal. This includes a white count hemoglobin and platelets. Electrolytes are normal. Liver function test is normal. Lipase is normal. is negative. Urine shows a small amount of ketones. No sign of infection. Patient's recheck. She is doing better. The nausea is gone. Her abdomen is soft. I do not think she needs imaging. With mild headache nausea vomiting and diarrhea I think this is likely a viral illness. We are pending her PCR COVID. We will get her home with [facility]. I will write her off work for a day. We discussed returning if she develops pain, blood in the stool or vomitus, fevers or other concerns. Lab Data Attestation: I reviewed the patient's lab results. Labs: Laboratory Results - last 24 hr 09/07/21 09/07/21 09/07/21 06:30 06:30 06:30 WBC 7.6 RBC 4.85 Hgb 13.6 Hct 41.7 MCV 86.0 MCH 28.0 MCHC 32.6 RDW Std Deviation 43.0 RDW Coeff of Tamia 13.7 Plt Count 307 MPV 10.2 Immature Gran % (Auto) 0.400 Neut % (Auto) 65.2 Lymph % (Auto) 24.1 Dukes % (Auto) 7.2 Eos % (Auto) 2.6 Baso % (Auto) 0.5 Absolute Neuts (auto) 4.9 Absolute Lymphs (auto) 1.83 Nucleated RBC % 0 Sodium 139 Potassium 3.7 Chloride 106 Carbon Dioxide 24.0 Anion Gap 9 BUN 7 Creatinine 0.69 Estim Creat Clear Calc 116.99 Est GFR (MDRD) Af Amer 128 Est GFR (MDRD) Non-Af 106 BUN/Creatinine Ratio 10.1 Glucose 104 Calcium 8.7 Total Bilirubin 0.20 AST 10 L ALT 18 Alkaline Phosphatase 63 Total Protein 7.5 Albumin 3.6 Globulin 3.9 Albumin/Globulin Ratio 0.9 Lipase 127 Serum , Qual NEGATIVE Urine Color Urine Clarity Urine pH Ur Specific [place] Urine Protein Urine Glucose (UA) Urine Ketones Urine Occult Blood Urine Nitrite Urine Bilirubin Urine Urobilinogen Ur Leukocyte Esterase Urine RBC Urine WBC Ur Squamous Epith Cells Urine Bacteria Urine Mucus 09/07/21 06:50 WBC RBC Hgb Hct MCV MCH MCHC RDW Std Deviation RDW Coeff of Tamia Plt Count MPV Immature Gran % (Auto) Neut % (Auto) Lymph % (Auto) Dukes % (Auto) Eos % (Auto) Baso % (Auto) Absolute Neuts (auto) Absolute Lymphs (auto) Nucleated RBC % Sodium Potassium Chloride Carbon Dioxide Anion Gap BUN Creatinine Estim Creat Clear Calc Est GFR (MDRD) Af Amer Est GFR (MDRD) Non-Af BUN/Creatinine Ratio Glucose Calcium Total Bilirubin AST ALT Alkaline Phosphatase Total Protein Albumin Globulin Albumin/Globulin Ratio Lipase Serum , Qual Urine Color Yellow Urine Clarity Clear Urine pH 5.0 Ur Specific [place] 1.020 Urine Protein 15 H Urine Glucose (UA) Normal Urine Ketones 5 H Urine Occult Blood 25 H Urine Nitrite Negative Urine Bilirubin Negative Urine Urobilinogen Normal Ur Leukocyte Esterase 100 H Urine RBC 0-5 SEEN Urine WBC 0-5 SEEN Ur Squamous Epith Cells 0-5 SEEN Urine Bacteria 1+ Urine Mucus 1+ Discharge Plan Triage Chief Complaint: Nausea/Vomiting/Diarrhea ED Provider: Chaparro Cornejo Dx/Rx/DC Orders Clinical Impression: Nausea vomiting and diarrhea, Mild dehydration Instructions: ED Vomiting and Diarrhea ... Prescriptions: New ondansetron 4 mg tablet,disintegrating 4 mg PO Q8H PRN (Reason: nausea and vomiting) Qty: 10 0RF No Action levonorgestrel-ethinyl estrad [Altavera (28)] 0.15-0.03 mg tablet 1 tab PO DAILY Primary Care Provider: Care Physician,No Primary Referrals: Sathya Kc MD [STAFF PHYSICIAN] - 1-2 Days if not improving Care Physician,No Primary [Primary Care Provider] - Disposition Disposition: Home, Self Care
[2021-09-07] MEDS: Ondansetron 4 MG/2 ML Vial IV (06:48)
[2021-09-07] MEDS: 0.9% Normal Saline 1,000 ML 1000 ML IV (06:49)
[2021-09-07 06:50] LABS: Absolute Lymphocyte Count 1.83 X10^3/uL (0.83-4.51); Absolute Neutrophil Count 4.9 X10^3/uL (2.0-7.7); Basophil# 0.04 X10^3/uL; Basophil% 0.5 % (0-1); Eosinophils% 2.6 % (0-5); Hematocrit 41.7 % (37-47); Hemoglobin 13.6 g/dL (12.0-15.0); Lymphocyte # 1.83 X10^3/ul (0.83-4.51); Lymphocyte % 24.1 % (19-41); Mean Corp Hgb Conc 32.6 g/dL (32-36); Mean Platelet Vol. 10.2 fl (6.2-12.0); Monocyte# 0.55 X10^3/uL; Monocyte% 7.2 % (0-10); NRBC Flagged by Analyzer 0 % (0-5); Neutrophil # 4.94 X10^3/uL (2.7-7.7); Neutrophil % 65.2 % (47-70); Platelet Count 307 K/mm3 (150-450); RBC Distribution Width CV 13.7 % (11.6-14.6); Red Blood Count 4.85 M/mm3 (4.2-5.4); White Blood Count 7.6 K/mm3 (4.4-11.0)
[2021-09-07 07:04] LABS: Color, Urine Yellow (Yellow); Glucose, Dipstick Normal (Normal); Ketone-Dipstick 5 mg/dl (Negative); Leukocyte Esterase-Dipstick 100 /ul (Negative); Nitrite-Dipstick Negative (Negative); Occult Blood-Urine 25 /ul (Negative); Protein-Dipstick 15 mg/dl (Negative); Urine Bilirubin Dipstick Negative (Negative); Urine Clarity Clear (Clear); Urine Urobilinogen Normal (Normal)
[2021-09-07 07:07] LABS: ALB/GLOB Ratio 0.9 RATIO (0.9-2.4); AST(SGOT) 10 U/L (15-37); Alanine Aminotransfer ALT/SGPT 18 U/L (13-56); Albumin, Serum 3.6 g/dL (3.2-5.0); Alkaline Phosphatase 63 U/L (45-117); Anion Gap 9 (5-15); BUN 7 mg/dL (7-18); BUN/Creat Ratio 10.1 RATIO (10-20); Calcium,Total 8.7 mg/dL (8.5-10.1); Chloride 106 mmol/L (98-107); Creatinine, Serum 0.69 mg/dL (0.55-1.02); EST Glomerular Filtration Rate 106 mL/min (>60); Est Glom Filt Rate - Afr Amer 128 mL/min (>60); Estimated Creatinine Clearance 116.99 ml/min; Globulin 3.9 g/dL (2.2-4.2); Glucose 104 mg/dL (74-106); Lipase 127 U/L (73-393); Potassium 3.7 mmol/L (3.5-5.1); Protein, Total 7.5 g/dL (6.4-8.2); Sodium Level 139 mmol/L (136-145)
[2021-09-07 07:13] LABS: Bacteria 1+ /hpf (None Seen); Mucous, Urine 1+ /hpf (<or=2+); Red Blood Cells-Urine 0-5 SEEN /hpf (0-5); Squamous Epithelial Cells - UA 0-5 SEEN /hpf (5-10); White Blood Cells 0-5 SEEN /hpf (0-5)
[2021-09-07 07:19] LABS: Internal QC Validated? YES +Cl - CLEAR BKGD; Pregnancy, Serum, hCG Quali. NEGATIVE Negative
[2021-09-07 07:44] VITALS: BP 114/67; PULSE 71; RESP 16; O2SAT 98
== END 2021-09-07 07:45 | disposition home or self-care (01) ==
PROVIDERS: Emergency Provider Emergency Medicine; Visit Provider Emergency Medicine
DX: R11.2 Nausea with vomiting, unspecified (principal); R19.7 Diarrhea, unspecified; R51.9 Headache, unspecified; R10.9 Unspecified abdominal pain; Z20.822 Contact with and (suspected) exposure to COVID-19
CPT/HCPCS: 80053; 81001; 83690; 84703; 85025; 87635; 96361; 96374; 99283; J7030; J2405; U0003; U0005

== ENCOUNTER 2023-05-22 13:15 | Outpatient (CLI) | payer OTHER, SELFPAY ==
[2023-05-22 13:43] VITALS: BMI 23.3
[2023-05-22 13:54] LABS: Color, Urine Yellow (Yellow); Glucose, Dipstick Normal (Normal); Ketone-Dipstick 5 mg/dl (Negative); Leukocyte Esterase-Dipstick 25 /ul (Negative); Nitrite-Dipstick Negative (Negative); Occult Blood-Urine Negative /ul (Negative); Protein-Dipstick Negative (Negative); Urine Bilirubin Dipstick Negative (Negative); Urine Clarity Clear (Clear); Urine Urobilinogen Normal (Normal)
[2023-05-22 14:15] LABS: ROM Internal Control Test YES-OK TO RESULT pt. (Internal QC); ROM Patient Test Negative (Negative); Record Kit Lot#, ROM+ K1409
--- NOTE | 2023-05-22 20:23 | OB.TRI.NOTE ---
HPI - General HPI Narrative FRANCOISE RIVERS, is a 32 F who presents with feeling a gush of fluid. Stated put on a pad and pad currently wet as well. Positive movement. Maternal Data Information SEAN Calculator Estimated Delivery Date Method Current WG Current Estimate 08/26/23 Manual 26w 2d PFSH PFSH Medical History Acute lumbar myofascial strain Home Medications levonorgestrel 0.15 mg-ethinyl estradiol 0.03 mg tablet (Altavera (28)) 1 tab PO DAILY 09/07/21 [History Last Taken Unknown] ondansetron 4 mg disintegrating tablet 4 mg PO Q8H PRN nausea and vomiting #10 tabs 09/07/21 [Rx Last Taken Unknown] Allergy/AdvReac Type Severity Reaction Status Date / Time cat dander Allergy difficulty Verified 05/22/23 14:16 breathing, eyes swell hydromorphone [From Dilaudid] AdvReac Rash Verified 05/22/23 14:16 morphine AdvReac Rash Verified 05/22/23 14:16 Surgical History H/O LEEP left wrist Social History Smoking Status: Never smoker ROS Eyes Eyes: Denies blurry vision Cardiovascular Cardiovascular: Reports none; Denies chest pain at rest, chest pain with activity or dizziness Respiratory/Chest Respiratory/Chest: Denies cough or dyspnea Gastrointestinal Gastrointestinal: Reports none and other; Denies diarrhea or vomiting Genitourinary Genitourinary: Denies dysuria Musculoskeletal Musculoskeletal: Reports none Integumentary Integumentary: Reports none; Denies rash Neurologic Neurologic: Denies dizziness, headache(s) or other visual disturbances Psychiatric Psychiatric: Reports none Physical Exam Const alert and no apparent distress General Appearance: cooperative Orientation / Consciousness: awake Exam Limitations: no limitations HEENT normocephalic Eyes General Eye: normal appearance of both eyes Neck full ROM Chest inspection of chest normal Resp normal respiratory effort and normal air movement Effort and Inspection: symmetric chest movement Auscultation: clear to auscultation bilaterally Cardio regular rate GI soft to palpation, non-tender and non-distended Inspection: and other Back/Spine normal ROM Extremity full ROM, normal capillary refill and no calf tenderness Skin no rashes or lesions noted Neuro oriented x3 and CN's II-XII intact bilaterally Psych mental status grossly normal NST FHR Rate Baby A Baseline: 125 NST Reactive:: Appropriate for gestational age Uterine Activity:: None Assessment & Plan (1) 26 weeks gestation of : (2) Threatened labor: PLAN: Plan Rom Plus- NEGATIVE UA- negative other than ketones and leukocytes (possible contamination) FHT 120-130 bpm D/C home with follow up in office Dr. Villarreal notified
== END 2023-05-22 14:45 | disposition home or self-care (01) ==
LOC: WPOUT 13:26 → WP 13:27
PROVIDERS: Referring Provider Advanced Practice Midwife; Visit Provider Advanced Practice Midwife
DX: O47.02 False labor before 37 completed weeks of gestation, second trimester (principal); Z3A.26 26 weeks gestation of pregnancy
CPT/HCPCS: 59025; 59050; 81002; 84112; 99221; G0378

== ENCOUNTER 2023-08-12 19:11 | Inpatient (IN) | payer MEDICAID, SELFPAY ==
[2023-08-12] VITALS (7 sets, daily range): BP systolic 138–156; BP diastolic 81–89; PULSE 60–68; RESP 16; TEMP 36.4–36.8; O2SAT 98–100; BMI 26.5
[2023-08-12] MEDS: Lactated Ringers 1,000 ML 50 ML IV (20:15)
[2023-08-12 20:30] LABS: Absolute Lymphocyte Count 2.55 X10^3/uL (0.83-4.51); Absolute Neutrophil Count 8.7 X10^3/uL (2.0-7.7); Basophil# 0.05 X10^3/uL; Basophil% 0.4 % (0-1); Eosinophil# 0.05 X10^3/uL; Eosinophils% 0.4 % (0-5); Hematocrit 33.5 % (37-47); Hemoglobin 10.6 g/dL (12.0-15.0); Lymphocyte # 2.55 X10^3/ul (0.83-4.51); Lymphocyte % 20.8 % (19-41); Mean Corp Hgb Conc 31.6 g/dL (32-36); Mean Corpuscular Hgb 25.5 pg (27.0-32.0); Mean Corpuscular Volume 80.7 fL (81-99); Mean Platelet Vol. 11.4 fl (6.2-12.0); Monocyte# 0.83 X10^3/uL; Monocyte% 6.8 % (0-10); NRBC Flagged by Analyzer 0 % (0-5); Neutrophil # 8.65 X10^3/uL (2.7-7.7); Neutrophil % 70.4 % (47-70); Platelet Count 236 K/mm3 (150-450); RBC Distribution Width CV 14.6 % (11.6-14.6); RBC Distribution Width SD 41.6 fl (35.1-43.9); Red Blood Count 4.15 M/mm3 (4.2-5.4); White Blood Count 12.3 K/mm3 (4.4-11.0)
--- NOTE | 2023-08-12 21:01 | PCM.HP.OB ---
HPI - General General Date of Admission: 08/12/23 Date of Service: 08/12/23 Chief Complaint: IOL for IUGR HPI Narrative FRANCOISE RIVERS, is a 32 F who presents for scheduled IOL for IUGR. She offers no complaints. Maternal Data Information SEAN Calculator Estimated Delivery Date Method Current WG Current Estimate 08/26/23 Manual 38w 0d PFSH PFSH Medical History (Updated 08/12/23 @ 21:[address] Izzy Reese, DO) Genital herpes affecting Acute lumbar myofascial strain Home Medications ?Medication ?Instructions ?Recorded ?Last Taken ?Type pantoprazole 20 mg tablet,delayed 20 mg PO DAILY gerd 08/12/23 08/12/23 09:00 History release no.118-ferrous fumarate 1 tab PO DAILY 08/12/23 08/12/23 09:00 History 29 mg-folic acid 1 mg chewable tablet (Se- 19 Chewable) valacyclovir 500 mg tablet 1,000 mg PO DAILY HSV 08/12/23 08/12/23 09:00 History Allergy/AdvReac Type Severity Reaction Status Date / Time hydromorphone (From Dilaudid) AdvReac Rash Verified 08/12/23 20:22 morphine AdvReac Rash Verified 08/12/23 20:22 Surgical History (Updated 08/12/23 @ 20:40 by Keli Albarran) left wrist H/O LEEP Social History Smoking Status: Never smoker History Elective abortions Hx Para 0 Spontaneous abortions Hx # Term Pregnancies Ectopic pregnancies Hx # Pregnancies Multiple births # of living children Addt'l History: 07/22/23 growth US with EFW 5% 2021 grams Normal umbilical artery dopplers NST FHR Rate Baby A Baseline: 120 Variability:: Moderate Accelerations:: 15 x 15 Decelerations:: None NST Reactive:: Yes FHR Category:: Category I Uterine Activity:: irregular ctx's Vital Signs Vital Signs Vital Signs: 08/12/23 20:11 08/12/23 20:11 Pulse Rate 68 Blood Pressure 138/89 H BP Systolic 138 BP Diastolic 89 Weight Weight: 169 lb 5.04 oz Body Mass Index (BMI) 26.5 Physical Exam Const alert and no apparent distress General Appearance: comfortable HEENT normocephalic Resp normal respiratory effort GI soft to palpation, non-tender and non-distended Labs Labs Labs: Blood Type O POSITIVE Antibody Screen NEGATIVE Hct 33.5 % (37-47) L Hgb 10.6 g/dL (12.0-15.0) L Syphilis Total Ab Non-reactive GBS negative Assessment & Plan (1) 38 weeks gestation of : PLAN: Admit for routine intrapartum care for schedule IOL for IUGR. GBS negative. Epidural PRN. Cytotec ordered and intracervical rodriguez placed in usual fashion filled with 30 cc. Discussed possible need for section given IUGR if baby does not tolerate labor. (2) IUGR (intrauterine growth restriction): PLAN: EFW 5% on growth ultrasound. (3) Elevated glucose tolerance test: PLAN: Passed 3 hour GTT. (4) History of herpes genitalis: PLAN: No lesions and no symptoms of outbreak. (5) Abnormal chromosomal and genetic finding on screening mother: PLAN: Positive screen for down syndrome on quad screen 03/12/23. Had negative NIPT on 02/25/23 scanned into [facility].
[2023-08-12 21:06] LABS: Syphilis Antibodies Non-reactive
[2023-08-12] MEDS: 0.9% Normal Saline Single 100 ML IV.SOLN. INTRA-UTER (21:40)
[2023-08-12] MEDS: miSOPROStol 25 MCG TABLET PO (22:08)
[2023-08-12 22:46] LABS: ALB/GLOB Ratio 0.8 RATIO (0.9-2.4); AST(SGOT) 22 U/L (15-37); Alanine Aminotransfer ALT/SGPT 28 U/L (13-56); Albumin, Serum 2.8 g/dL (3.2-5.0); Alkaline Phosphatase 251 U/L (45-117); Anion Gap 8 (5-15); BUN 15 mg/dL (7-18); BUN/Creat Ratio 18.4 RATIO (10-20); Calcium,Total 8.7 mg/dL (8.5-10.1); Chloride 108 mmol/L (98-107); Creatinine, Serum 0.82 mg/dL (0.55-1.02); EST Glomerular Filtration Rate 86 mL/min (>60); Est Glom Filt Rate - Afr Amer 105 mL/min (>60); Estimated Creatinine Clearance 106.21 ml/min; Globulin 3.7 g/dL (2.2-4.2); Glucose 98 mg/dL (74-106); Potassium 3.8 mmol/L (3.5-5.1); Protein, Total 6.5 g/dL (6.4-8.2); Sodium Level 136 mmol/L (136-145)
[2023-08-12 23:19] LABS: Protein, Urine (Random) 16.2 mg/dL (<11.9); Protein:Creat Ratio 316 mg/g CRE (0-200)
[2023-08-13] VITALS (103 sets, daily range): BP systolic 103–165; BP diastolic 54–94; PULSE 51–96; RESP 14–17; TEMP 36.2–37.2; O2SAT 92–100
[2023-08-13] MEDS: miSOPROStol 25 MCG TABLET PO (02:35)
[2023-08-13] MEDS: 0.9% Saline Lock 10 ML Syringe IV ×3 (03:50→23:12)
[2023-08-13] MEDS: Magnesium Sulfate 4gm/100mL 4 GM/100 ML IV.SOLN. IV (03:55)
[2023-08-13] MEDS: Magnesium Sulfate 20 GM/500 ML BAG IV ×3 (04:19→22:45)
[2023-08-13] MEDS: Oxytocin 15 Units/NS 250ml 15 UNITS/250 ML IV.SOLN 2 UNITS IV (07:13)
[2023-08-13] MEDS: fentaNYL-bupivacaine (epidural) 100 ML BAG EPIDURAL (18:15)
[2023-08-13] MEDS: Sodium Citrate/Citric Acid 30 ML UDC PO (20:42)
[2023-08-13] MEDS: Acetaminophen 500 MG Tablet PO (20:42)
--- NOTE | 2023-08-13 20:50 | OP.PCM_ITS ---
Maternal Data Information SEAN Calculator Estimated Delivery Date Method Current WG Current Estimate 08/26/23 Manual 38w 1d Details Operative Information Date of Procedure: 08/13/23 Pre-Operative Diagnosis: (1) Failure to dilate (2) Sterilization request Post-Operative Diagnosis: Same Indications Narrative: The patient had no cervical change for 8.5 hours and cervical exam was stable at 6/60/-1. Pitocin had been stopped for decelerations and then restarted. She was counseled on R/B/A and decision made to proceed with a section. Patient restated her request for permanent sterilization via bilateral salpingectomy. Risks of regret and failure were again reviewed. [facility] chart reviewed which showed patient's request during the for PP sterilization and confirmed that Title 19 papers had been signed. The patient was taken to the operating room where spinal anesthesia was placed & found to be adequate. She was prepped and draped in the dorsal supine position with a leftward tilt. A Pfannenstiel skin incision was made approximately 2 cm above the symphysis pubis and carried through to the underlying fascia with the scalpel. The fascia was incised incised in the midline and extended laterally with the Rojas scissors. The rectus muscles were in the midline and the peritoneum was entered carefully and bluntly. The peritoneal incision was stretched and the bladder blade was inserted. Vesicouterine peritoneum was tented up, incised & then bladder flap created gently. The uterine incision was made in a low transverse fashion with the scalpel and extended superiorly and inferiorly with blunt dissection. The 's head was brought to the incision in the flexed position and delivered without difficulty. The head was gently guided to allow delivery of the anterior and posterior shoulders. The body then delivered with fundal pressure in the standard fashion. The 3VC cord was clamped and cut. The infant was handed off to the waiting pediatric dermatologist. The placenta was delivered with fundal massage and gentle traction in the standard fashion. The uterus was exteriorized and cleared of clots and debris. The uterine incision was closed with #1 Vicryl suture in a running locked fashion. Monocryl suture was used in an imbricating fashion. 2 additional figure of 8 sutures were placed on the uterine incision. The incision was examined and was found to be hemostatic. The uterus was returned to the abdominal cavity. Attention was turned to the fallopian tubes. The right fallopian tube was grasped, cauterized and cut with the ligasure. Excellent hemostasis was confirmed. Then the left fallopian tube was grasped, cauterized and cut with the ligasure. Excellent hemostasis was confirmed. After irrigating [place] was placed over the uterine incision as some areas were denuded (but hemostatic). The rectus muscle was examined and any bleeding was Bovie cauterized. The fascia was closed with PDS suture in a running standard fashion. The subcutaneous tissue was examining and any bleeding was Bovie cauterized. The subcutaneous tissue was reapproximated with interrupted sutures. The skin was closed in a subcuticular fashion by the DIRECTOR MEDICAL SAFETY while I was present in the labor & delivery unit. The remainder of the procedure was performed by me with assistance. All sponge, lap, and needle counts were correct. The patient was taken to her room for recovery in a stable condition. Classification: RACHANA Procedure Type: low transverse clay maker #1: Tylor Clement Type of Anesthesia: Epidural Antibiotic Given: Ancef 2 grams IV x1 and Zithromax 500 mg/5 mL X1 Drain: Hernandez to straight drain Estimated Blood Loss: 850ml Fluids Replaced: 1200 Procedure Start Time: 21:24 Procedure Stop Time: 22:15 Findings Description of Procedure: Normal maternal uterus and adnexa Presentation: Positive for Vertex Amniotic Membrane Rupture Type: Artificial Amniotic Fluid Description: Clear Placental Delivery Description: Expressed Placenta Disposition: [facility] Specimen(s) Sent to Pathology: bilateral fallopian tubes Cord Vessel Description: 3 Vessels Cord Entanglement: None Infant A Gender: Female (1 minute): 8 (5 minute): 9 Delayed Cord Clamping: No
[2023-08-13] MEDS: Cefazolin 2 GM in 0.9% Normal Saline (100mL Bag) 100 ML IV (21:11)
[2023-08-13] MEDS: Azithromycin 500 MG in Dextrose 5%-Water (250mL Bag) 250 ML 250 MG IV (22:43)
[2023-08-13] MEDS: Oxytocin 15 Units/NS 250ml 15 UNITS/250 ML IV.SOLN 83 UNITS IV (22:44)
[2023-08-13] MEDS: Lactated Ringers 1,000 ML 50 ML IV (22:53)
[2023-08-13] MEDS: Ondansetron 4 MG/2 ML Vial IV (23:10)
[2023-08-13] MEDS: Ketorolac 30 MG/ML Syringe IV (23:10)
[2023-08-14] VITALS (23 sets, daily range): BP systolic 108–136; BP diastolic 72–115; PULSE 73–93; RESP 14–16; TEMP 36.2–36.9; O2SAT 96–100
--- NOTE | 2023-08-14 | FALS_PTH ---
PATIENT: FRANCOISE RIVERS LOC: [facility] U#:[id number] AGE/SX: 32/F ROOM: WP005 RE08/12/[address]: Dr. Pete Kaur MD : 1990 BED: 1 DIS: 08/16/2023 SPEC #: [id number] RECD: 08/14/23 00:11 STATUS: JAMSHID REReal #: [id number] JAY: 08/14/23 00:[address]: Pete Kaur DEPT: SURGICAL PATHOLOGY RECD BY: Cristy Thomas ENTERED: 08/14/23 10:34 SP TYPE: FALL TUBES OTHR DR: Dr. Izzy Reese, DO No Primary Care Phys Tissues: Fallopian tube Procedures: Surgery Specimen Level II HEADER OPERATION: Tubal ligation PRE-OP DIAGNOSIS: section TISSUE SUBMITTED: Fallopian tubes- suture in left tube MICROSCOPIC DIAGNOSIS Bilateral fallopian tubes, salpingectomy: Bilateral fallopian tubes, no pathologic diagnosis. See comment. SJ: 08/15/2023 COMMENT A few minute fragments of skeletal muscle tissue are also noted adjacent to the left fallopian tube. MICROSCOPIC DESCRIPTION Slides are reviewed. GROSS DESCRIPTION Received in fixative is one container labeled with the patient's name and designated bilateral fallopian tubes- left tube suture. The specimen consists of bilateral fallopian tubes including fimbrial ends. Right fallopian tube measures 9.5 cm in length and 1.0 cm in diameter. The left fallopian tube measures 8.0cm in length and 0.6cm in diameter. Sections reveal unremarkable cut surfaces. Quarrying Specialist sections are submitted in two cassettes. 1- right fallopian tube, 2- left fallopian tube / SJ: 08/14/2023 TC:4 CPT: 64982 x2
[2023-08-14 00:08] LABS: Pathology Specimen OB SEE PATHOLOGY REPORT
[2023-08-14] MEDS: Acetaminophen 500 MG Tablet 1000 MG PO ×4 (00:45→20:08)
[2023-08-14] MEDS: 0.9% Saline Lock 10 ML Syringe IV ×2 (05:25→21:38)
[2023-08-14] MEDS: Ketorolac 30 MG/ML Syringe IV ×3 (05:25→17:23)
[2023-08-14 06:37] LABS: Hematocrit 35.6 % (37-47); Hemoglobin 11.4 g/dL (12.0-15.0); Mean Corpuscular Hgb 25.8 pg (27.0-32.0); Mean Corpuscular Volume 80.5 fL (81-99); Mean Platelet Vol. 11.5 fl (6.2-12.0); Platelet Count 295 K/mm3 (150-450); RBC Distribution Width CV 14.9 % (11.6-14.6); RBC Distribution Width SD 41.7 fl (35.1-43.9); Red Blood Count 4.42 M/mm3 (4.2-5.4); White Blood Count 17.6 K/mm3 (4.4-11.0)
--- NOTE | 2023-08-14 08:43 | PCM.PN.OB ---
Subjective Subjective On magnesium until 9 pm tonight. Sore but ok. Bottle and breast feeding. Hernandez in place Objective Data Objective Data Vital Signs: Vital Signs Temp Pulse Resp BP Pulse Ox O2 Del Method 97.2 F L 86 16 121/79 H 96 Room Air 08/14/23 08:00 08/14/23 08:00 08/14/23 08:00 08/14/23 08:00 08/14/23 08:00 08/14/23 08:00 Oxygen Delivery Method Room Air Weight: 76.8 kg Body Mass Index (BMI) 26.5 Intake & Output: Intake and Output for Last 24 Hours 08/12/23 08/13/23 08/14/23 23:59 23:59 23:59 Intake Total 4.17 / 4.17 2757.08 / 2757.08 325 / 325 Output Total 3900 / 3900 1999 / 1999 Balance 4.17 / 4.17 -1142.92 / -1142.92 -1675 / -1675 Lab / Micro Data 08/14/23 06:25 08/12/23 22:17 Labs: Laboratory Results - last 24 hr 08/14/23 06:25: WBC 17.6 H, RBC 4.42, Hgb 11.4 L, Hct 35.6 L, MCV 80.5 L, MCH 25.8 L, MCHC 32.0, RDW Std Deviation 41.7, RDW Coeff of Tamia 14.9 H, Plt Count 295, MPV 11.5 Physical Exam Const alert General Appearance: cooperative GI GI Narrative: soft, moderate distention, fundus firm, appropriately tender. Abdominal bandage clean dry and intact Assessment & Plan (1) IUGR (intrauterine growth restriction): (2) Status post section: (3) Pre-eclampsia, severe, delivered: PLAN: Plan Continue with pp magnesium
[2023-08-14] MEDS: Magnesium Sulfate 20 GM/500 ML BAG IV ×2 (09:01→18:10)
[2023-08-14] MEDS: Enoxaparin 40 MG/0.4 ML Syringe SC (09:44)
[2023-08-14] MEDS: Senna/Docusate Sodium 1 Tablet PO (09:45)
[2023-08-14] MEDS: Ibuprofen 600 MG Tablet PO (23:27)
[2023-08-15] MEDS: Acetaminophen 500 MG Tablet 1000 MG PO ×4 (02:08→20:33)
[2023-08-15] MEDS: Ibuprofen 600 MG Tablet PO ×4 (04:16→23:27)
[2023-08-15 04:18] VITALS: BP 123/84; PULSE 72; RESP 16; TEMP 37.1; O2SAT 97
--- NOTE | 2023-08-15 06:44 | PCM.PN.OB ---
Subjective Subjective Feeling better this morning. Mag off at 9m last night. No RODRIGUEZ no vision changes. Pumping, but bottle feeding right now due to SGA. Hernandez still in place. BPs have been WNL Objective Data Objective Data Vital Signs: Vital Signs Temp Pulse Resp BP Pulse Ox O2 Del Method 98.7 F 72 16 123/84 H 97 Room Air 08/15/23 04:18 08/15/23 04:18 08/15/23 04:18 08/15/23 04:18 08/15/23 04:18 08/15/23 04:18 Oxygen Delivery Method Room Air Weight: 76.8 kg Body Mass Index (BMI) 26.5 Intake & Output: Intake and Output for Last 24 Hours 08/13/23 08/14/23 08/15/23 23:59 23:59 23:59 Intake Total 2757.08 / 2757.08 3099.17 / 3099.17 Output Total 3900 / 3900 5600 / 5600 1150 / 1150 Balance -1142.92 / -1142.92 -2500.83 / -2500.83 -1150 / -1150 Lab / Micro Data 08/14/23 06:25 08/12/23 22:17 Physical Exam Const alert General Appearance: cooperative GI GI Narrative: soft, moderate distention, fundus firm, appropriately tender. Abdominal bandage clean dry and intact Assessment & Plan (1) Pre-eclampsia, severe, delivered: PLAN: Mag off. BPs stable. Hernandez out today. possible D/c tomorrow is condition remains stable (2) Status post section: (3) IUGR (intrauterine growth restriction):
[2023-08-15 09:00] VITALS: BP 124/80; PULSE 85; RESP 16; TEMP 36.5; O2SAT 99
[2023-08-15] MEDS: Senna/Docusate Sodium 1 Tablet PO (10:50)
[2023-08-15] MEDS: Enoxaparin 40 MG/0.4 ML Syringe SC (10:50)
--- NOTE | 2023-08-15 13:43 | CASEMGMT ---
Social Work Assessment Labor and Delivery Unit Patient Address:[address] [place] [address] Phone number: [phone] Date of Referral: 08/14/23 Time of Referral:? 1222 Referred By: Dr. Pete Kaur Date of Intervention: ?08/15/23? Time of Intervention:? 1100 Reason for Referral:? resources Sw completed chart review and acknowledges social work consult due to need for resources. Sw presented to bedside and introduced self to mother of baby (KURT- Sun). Also present was maternal grandma, who MOB states is okay to stay present during completion of assessment. History obtained from: medical records, MOB Household composition: MOB states that currently residing in the home is herself, FOB and now baby when ready for discharge. MOB denies any issues or concerns with their housing at this time Patient's parent/guardian status:? MOB states that she and FOB met through FOB's older daughter and have been together for 1 year. MOB denies any issues or concerns with domestic violence or intimate partner violence. ?This is first baby for MOB and 6th baby for FOB Medical History: ?KURT is 32 year old single, female who is 1, para 0- now 1 following labor and delivery of baby. KURT states that she went to [facility] to schedule to have her tubes tied. KURT states that she went to the initial appointment and provided a urine sample, only to be called and informed that she was . KURT states that she had come to terms with never being a mom, stating that she has nieces and nephews and that is enough for her. KURT states that it was a lot to process when she discovered she was . KURT states that it w3as a lot for her to accept, but she and FOB both did accept the and are happy they kept the baby. KURT presented to hospital for an induction of labor at 38 weeks gestation due to Intrauterine Growth Restriction. KURT required a primary and delivered baby, named Nely, on 08/13/23, baby weighing 4lb 4oz with apgars 8 and 9 at one and five minutes of life, respectfully. KURT reports that baby will be followed by Dr. Marquez for pediatrics. Educational Status:? KURT states that she completed some college but did not get a degree, and FOB obtained his GED. 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 MOB states that DOLLY was working as a maintenance eddie for an apartment complex, however he quit recently due to the amount of time they required him to work. Infant Supplies:?? MOB states that she has obtained all necessary baby supplies, including: car seat, safe sleep space, clothes, diapers and wipes. Childcare/Caregiver(s):?MOB states that she will be the primary caregiver to baby along with DOLLY. Transportation:?? MOB states that she both parents have their drivers license and reliable means of transportation. No barriers at this time. Programs/Agencies Involved: ???MOB states that she is receiving food stamps and insurance through [employer]. KURT is also connected to [facility] and has called them to inform them that baby is born. Children Services/Legal Issues:??No history of children services involvement, no issues or concerns warranting referral to be made at this time. ? Behavioral Health Issues: ??Mental Health History:?MOB states that DOLLY does not have any mental health diagnoses. MOB also denies having any mental health diagnoses at this time. ? Substance Use History: MOB denies substance use prior to or during . ?? Family History:?MOB denies family history of addiction or significant mental health diagnoses. ? Drug Screens: ??No drug screens observed in chart review. Family/Social Stressors:? MOB states that when she learned that she was it was a major shock. MOB states that she and FOB considered having an , however when she had her first ultrasound to confirm and see gestation she learned that she was three months . MOB states that when she learned that she was that far along and saw the baby on the monitor she was not able to have an . MOB states that once the accepted the and decided to keep the baby, both she and FOB became excited and eager for baby to be here. Support Systems: KURT identifies that her mom and FOB are her biggest supports at this time. Depression/Shaken Baby/Safe Sleeping:? Mel educated MOB to signs and symptoms of mood and anxiety disorders to be on the lookout for. Mel encouraged MOB to stay open with her supports and with her medical providers who would be able to help her recognize when she is struggling. MOB expressed understanding. Sw educated MOB on shaken baby prevention and ABCs of safe sleep. MOB expressed understanding. ASSESSMENT:? MOB and baby are admitted following labor and delivery of . MOB was open to sw about her surprise when she was in the beginning stages of getting her tubes tied. MOB has all necessary baby supplies and natural supports in place. FOB not present for completion of assessment, this is his sixth baby. MOB states that she and FOB have accepted and are eager to parent baby. MOB is lacking financial resources as she and FOB are not employed at this time. MOB states that FOB is working on obtaining employment and she is only taking time off during this period. PLAN:?MOB and baby to be discharged when medically ready. ?No other services requested or indicated. Elaine La, [employer] OPERATOR, [employer]
[2023-08-15 15:00] VITALS: BP 120/76; PULSE 82; RESP 16; TEMP 36.7; O2SAT 97
[2023-08-15 19:55] VITALS: BP 135/84; PULSE 75; RESP 16; TEMP 36.7; O2SAT 98
[2023-08-16] MEDS: Acetaminophen 500 MG Tablet 1000 MG PO ×2 (02:31→09:27)
[2023-08-16 02:34] VITALS: BP 138/83; PULSE 70; RESP 16; TEMP 36.5; O2SAT 100
[2023-08-16] MEDS: Ibuprofen 600 MG Tablet PO ×2 (05:40→11:14)
--- NOTE | 2023-08-16 06:56 | PCM.DC.SUM ---
Providers Date of Admission: 08/12/23 Primary Care Physician: No Primary Care Phys Reason For Visit: PRIMARY Diagnosis Discharge Diagnosis (1) Pre-eclampsia, severe, delivered: Status: Acute Code(s): O14.14 - Severe pre-eclampsia complicating childbirth (2) Status post section: Status: Acute Code(s): Z98.891 - History of uterine scar from previous surgery (3) IUGR (intrauterine growth restriction): Status: Acute Plan POD 3 Primary C/S No severe range pressures Desires discharge home Formula feeding Will follow up in office this week for BP and incision check Medications at Discharge Home Medications no.118-ferrous fumarate 29 mg-folic acid 1 mg chewable tablet (Se-Flavio 19 Chewable) 1 tab PO DAILY 08/12/23 valacyclovir 500 mg tablet 1,000 mg PO DAILY HSV 08/12/23 acetaminophen 500 mg tablet 1,000 mg (2 x 500 mg) PO Q6H #0 tabs 08/16/23 ibuprofen 600 mg tablet 600 mg PO Q6H #0 tabs 08/16/23 Hospital Course Operations section Procedures None Summary of Care Provided Minutes Spent on Discharge: 15 Hospital Course: Patient for primary section. Hospital course was uneventful. Physical Exam Narrative Patient seen at bedside. Denies pain. Ambulating and voiding without difficulty. Passing flatus. Denies headache, vision changes, SOB, CP or RUQ pain. Formula feeding . Const alert and no apparent distress General Appearance: cooperative and comfortable Exam Limitations: no limitations HEENT normocephalic Eyes General Eye: normal appearance of both eyes Neck full ROM General: normal visual inspection Chest Chest: symmetrical chest wall rise Resp normal respiratory effort and normal air movement Effort and Inspection: symmetric chest movement Auscultation: clear to auscultation bilaterally Cardio regular rate and regular rhythm GI normal to inspection, nondistended, normoactive bowel sounds Back/Spine normal ROM Extremity full ROM and no calf tenderness General Extremity: normal exam except as noted Skin no rashes or lesions noted Neuro CN's II-XII intact bilaterally Psych mental status grossly normal Weight / BMI Weight Weight: 169 lb 5.04 oz Body Mass Index (BMI) 26.5 ABG / Lab / Microbiology Data 08/14/23 06:25 08/12/23 22:17 D/C Instructions Discharge Diet: No restrictions May resume sexual activity in: 6-8 weeks Weight Bearing Status: Weight bearing as tolerated Lifting Restrictions: 20 lbs Call your doctor if your incision/area has: Continuous Slow Oozing, Increased Pain/ Swelling, Increased Redness, Foul Smelling Discharge and Swelling at the incision site Call your doctor if you observe: Fever of 101 or Higher, Inability to urinate, Using more than 1 pad per hour, Shortness of breath, Chest pain, Calf discomfort and Uncontrolled pain Remove Dressing in: 5 days Cleanse incision/area with: Soap & Water and Keep Dressing Clean & Dry When: 1 week in office for incision check or sooner if needed 6 weeks Meaningful Use Info Meaningful Use Meaningful Use Diagnoses (Choose all that apply): None applicable Ischemic Stroke Statin Dosing Therapy Reference: STATIN DOSE THERAPY REFERENCE: * Patients > 75 years receive moderate or high dose statin therapy. * Patients 75 years or YOUNGER should receive HIGH intensity statin dose unless contraindicated. You will be required to document reason for non-treatment if statin daily dose does not meet guidelines. HIGH DOSE STATIN THERAPY DAILY Atorvastatin > than or = to 40 mg Rosuvastatin > than or = to 20 mg Amlodipine + Atorvastatin > than or = to 2.5/40 mg Ezetimibe + Simvastatin 10/80 mg Simvastatin 80mg Discharge Plan Admission Admit Date/Time: 08/12/23 19:11 Primary Reason for Your Visit: labor and delivery Attending Provider: Pete Kaur Primary Care Provider: Care PhysicianVanessa Primary Instructions Additional Instructions / Restrictions: Please notify office if any headaches, vision changes, SOB, or CP Discharge Orders/Prescriptions Prescriptions: New acetaminophen 500 mg Tablet 1,000 mg PO Q6H Qty: 0 0RF ibuprofen 600 mg Tablet 600 mg PO Q6H Qty: 0 0RF Continued Se-Flavio 19 Chewable 29 mg iron- 1 mg tablet,chewable 1 tab PO DAILY Discontinued pantoprazole 20 mg tablet,delayed release (DR/EC) 20 mg PO DAILY No Action valacyclovir 500 mg tablet 1,000 mg PO DAILY Referrals / Follow Up: Care Physician,Vanessa Primary [Primary Care Provider] - Disposition Disposition (needs filled in before D/C Order can be placed): Home, Self Care
[2023-08-16] MEDS: Senna/Docusate Sodium 1 Tablet PO (09:27)
[2023-08-16 09:34] VITALS: BP 134/79; PULSE 84; RESP 16; TEMP 36.8; O2SAT 98
[2023-08-16] MEDS: Enoxaparin 40 MG/0.4 ML Syringe SC (10:45)
[2023-08-16 11:12] VITALS: BP 134/79; PULSE 84; RESP 16; TEMP 36.8; O2SAT 98
== END 2023-08-16 11:45 | disposition home or self-care (01) | DRG 539 ==
PROVIDERS: Admitting Provider Obstetrics & Gynecology; Visit Provider Obstetrics & Gynecology
DX: O36.5930 Maternal care for other known or suspected poor fetal growth, third trimester, not applicable or unspecified (principal); O14.15 Severe pre-eclampsia, complicating the puerperium; O62.0 Primary inadequate contractions; O76 Abnormality in fetal heart rate and rhythm complicating labor and delivery; Z3A.38 38 weeks gestation of pregnancy; Z30.2 Encounter for sterilization; Z37.0 Single live birth
CPT/HCPCS: 36415; 59025; 59050; 80053; 82570; 84156; 85025; 85027; 86780; 86850; 86900; 86901; 88302; 99221; J7120; A4216; G0378; J2405